=== PATIENT | female | born 1960 | race Two or more races ===

== ENCOUNTER 2017-06-14 11:36 | Outpatient (CLI) | payer OTHER | END 2017-06-14 13:59 | disposition home or self-care (01) | LOC: MAMO-SONO 11:36 | DX: N60.19 Diffuse cystic mastopathy of unspecified breast (principal); N60.12 Diffuse cystic mastopathy of left breast; N60.11 Diffuse cystic mastopathy of right breast; Z12.31 Encounter for screening mammogram for malignant neoplasm of breast; N84.0 Polyp of corpus uteri ==